=== PATIENT | female | born 1965 | race Caucasian/White ===

== ENCOUNTER → 2017-11-23 | Outpatient (CLI) | payer SELFPAY | LOC: AMB 23:55 | PROVIDERS: ATTEND Nurse Practitioner | DX: S41.002A Unspecified open wound of left shoulder, initial encounter (principal); S61.501A Unspecified open wound of right wrist, initial encounter; S31.101A Unspecified open wound of abdominal wall, left upper quadrant without penetration into peritoneal cavity, initial encounter; Y24.9XXA Unspecified firearm discharge, undetermined intent, initial encounter | CPT/HCPCS: A0998 ==